=== PATIENT | female | born 1995 | race Caucasian/White ===

== ENCOUNTER 2022-08-04 12:20 | Outpatient (CLI) | payer OTHER, SELFPAY ==
[2022-08-04 12:43] LABS: Basophils Absolute Auto 0.05 K/mm3 (0.00-0.10); Basophils Percent Auto 0.4 % (0.0-1.0); Eosinophils Absolute Auto 0.12 K/mm3 (0.02-0.50); Hematocrit 37.1 % (35.0-49.0); Hemoglobin 12.1 g/dL (12.0-15.0); Immature Granulocyte Absolute 0.06 K/mm3 (0.00-0.00); Immature Granulocyte Percent A 0.5 % (0.0-0.0); Lymphocytes Absolute Auto 1.55 K/mm3 (1.10-4.50); Lymphocytes Percent Auto 13.5 % (18.0-42.0); Mean Corpuscular HGB Conc 32.6 g/dL (32.0-36.0); Mean Corpuscular Hemoglobin 27.2 pg (27.0-31.0); Mean Corpuscular Volume 83.4 fL (78.0-102.0); Mean Platelet Volume 10.6 fl (9.2-11.8); Monocytes Absolute Auto 0.39 K/mm3 (0.10-0.90); Monocytes Percent Auto 3.4 % (2.0-11.0); Neutrophils Absolute Auto 9.3 K/mm3 (1.7-7.2); Neutrophils Percent Auto 81.2 % (50.0-70.0); Platelet Count Result 209 K/mm3 (150-420); Red Blood Count 4.45 M/mm3 (4.20-5.40); Red Cell Distribution Width 14.5 % (11.6-14.4); White Blood Count 11.5 K/mm3 (4.8-10.8)
[2022-08-04 13:22] LABS: Alanine Aminotransferase 16 U/L (14-59); Albumin Level 3.7 g/dL (3.4-5.0); Alkaline Phosphatase 114 U/L (46-116); Anion Gap 10 mmol/L (8-16); Aspartate Amino Transferase < 10 U/L (15-37); Bilirubin,Total 0.4 mg/dL (0.00-1.00); Blood Urea Nitrogen 13 mg/dL (7-18); Calcium 9.1 mg/dL (8.5-10.1); Carbon Dioxide 25 mmol/L (21-32); Chloride 106 mmol/L (98-108); Estimated Glomerular Filt Rate > 60; Ferritin 75 ng/mL (8-252); Glucose 106 mg/dL (70-99); Iron 44 ug/dL (50-170); Osmolality Calculated 292 mOsm/kg (285-295); Percent Iron Saturation 17 % (12-57); Potassium 4.3 mmol/L (3.5-5.1); Sodium 141 mmol/L (136-145); Total Protein 7.5 g/dL (6.4-8.2)
[2022-08-07 11:49] LABS: Hepatitis A Antibody IgM Nonreactive; Hepatitis B Core Antibody Nonreactive (Nonreactive); Hepatitis B Surface Antigen Nonreactive (Nonreactive); Hepatitis C Virus Antibody Reactive (Nonreactive)
[2022-08-07 16:26] LABS: Hepatitis C RNA, Quant PCR <15 IU/mL
[2022-08-08 12:52] LABS: Hepatitis C Viral RNA PCR <15 IU/mL
== END 2022-08-04 12:21 | disposition home or self-care (01) ==
LOC: CHSLAB 12:22
PROVIDERS: PCP Family Medicine; Visit Provider Family Medicine
DX: B19.20 Unspecified viral hepatitis C without hepatic coma (principal); G25.81 Restless legs syndrome; I42.9 Cardiomyopathy, unspecified
CPT/HCPCS: 36415; 80053; 80074; 82728; 83540; 83550; 85025; 87522

== ENCOUNTER 2022-08-23 11:00 | Outpatient (RCR) | payer OTHER, SELFPAY ==
--- NOTE | 2022-07-25 15:13 | PTOPEVAL1 ---
Assessment and note entered by Jeannie Han DPT Evaluation Information Assessment Status Evaluation Diagnosis Unsteady gait Onset 06/27/2022 Subjective Information Subjective portion assisted by sister. Pt experienced a heart attack on 06/27/2022 due to an overdose. Pt has since been dealing with short term memory loss, balance issues, and some leg pain. Pt has increased difficulty with walking and with going up steps. Pt has constant burning pain in both of her legs which improves with movement. She reports some numbness and tingling in her legs as well. She has had multiple tripping incidents since her [place]. She is currently independent with dressing, bathing, cooking, and cleaning but she has had a family member present at all times to assist. Pt's sister reports she has a very hard time with her short term memory. Reported Pain Level Pain Score 0: Self Report Pain Score 5: Self Report Assessment PT Clinical Summary Pt presents to PT s/p [place] on 06/27/22 and demonstrates decreased strength, altered gait, and impaired dynamic balance. Her current deficits place her at an increased risk for falls and makes it more challenging for her to navigate steps and obstacles. She was provided with some interventions to improve balance with a NBOS or visual suppression. The pt and her sister were educated on her current status and POC going forward. She will benefit from skilled PT to decrease risk for falls, improve the aforementioned impairments, and improve efficiency and independence with recreational and functional activities. Plan of Care Interventions Gait Training,Neuro Re-education,Patient/Caregiver Educati,Therapeutic Activities,Therapeutic Exercise PT Services Indicated Yes Treatment Frequency and 1x week for 10 visits Duration These treatments will address the objective and functional deficits as defined above. The patient will be advanced safely and appropriately in order for the patient to progress towards his/her prior level of function. Additional exercises will be introduced and as well as a comprehensive home exercise program upon discharge, if needed, ?to ensure carryover of functional gains achieved in the clinic. This treatment plan has been reviewed and agreement upon by the patient.
--- NOTE | 2022-07-26 08:19 | OTOPEVAL1 ---
Assessment and note entered by Hanny Tony OT These treatments will address the objective and functional deficits as defined above. The patient will be advanced safely and appropriately in order for the patient to progress towards his/her prior level of function. Additional exercises will be introduced and as well as a comprehensive home exercise program upon discharge, if needed, ?to ensure carryover of functional gains achieved in the clinic. This treatment plan has been reviewed and agreement upon by the patient.
--- NOTE | 2022-07-26 09:19 | BUOTOPEVAL ---
Assessment and note entered by Hanny Tony OT Evaluation Information Assessment Status Evaluation Diagnosis Myocardial infarction Onset 06/27/2022 Subjective Information The patient reports she would like to go back to work and living independently. Reported Pain Level Pain Score 0: Self Report Assessment OT Clinical Summary The patient is a 27 year old female who was referred to outpatient OT due to decreased UE strength and fine motor coordination deficits from myocardial infarction and neurological event. The patient previously was living alone and working/ driving independently, demonstrated WNL UE strength and fine motor coordination needed to perform work tasks. The patient now lives with her sister, is independent with self care tasks but requires assistance for homemaking tasks, driving and community mobility due to safety/cognitive concerns and decreased UE strength and endurance. The patient requires skilled OT to address UE weakness, [employer]/pinch strength and fine motor coordination in order to return to prior level of function needed to live independently and contribute to society through work. Plan of Care Interventions Therapeutic Exercise,Manual Therapy,Neuro Re- education,Therapeutic Activities,Electrical Stimulation,Self-Care/Home Management,Ultrasound OT Services Indicated Yes Treatment Frequency and 1x/week for 10 visits. Duration These treatments will address the objective and functional deficits as defined above. The patient will be advanced safely and appropriately in order for the patient to progress towards his/her prior level of function. Additional exercises will be introduced and as well as a comprehensive home exercise program upon discharge, if needed, ?to ensure carryover of functional gains achieved in the clinic. This treatment plan has been reviewed and agreement upon by the patient.
--- NOTE | 2022-08-05 14:11 | BUPTOPEVAL1 ---
Assessment and note entered by Jeannie Han DPT Evaluation Information Assessment Status Evaluation Diagnosis Unsteady gait Onset 06/27/2022 Subjective Information Subjective portion assisted by sister. Pt experienced a heart attack on 06/27/2022 due to an overdose. Pt has since been dealing with short term memory loss, balance issues, and some leg pain. Pt has increased difficulty with walking and with going up steps. Pt has constant burning pain in both of her legs which improves with movement. She reports some numbness and tingling in her legs as well. She has had multiple tripping incidents since her [place]. She is currently independent with dressing, bathing, cooking, and cleaning but she has had a family member present at all times to assist. Pt's sister reports she has a very hard time with her short term memory. Reported Pain Level Pain Score 0: Self Report Assessment PT Clinical Summary Pt presents to PT s/p [place] on 06/27/22 and demonstrates decreased strength, altered gait, and impaired dynamic balance. Her current deficits place her at an increased risk for falls and makes it more challenging for her to navigate steps and obstacles. She was provided with some interventions to improve balance with a NBOS or visual suppression. The pt and her sister were educated on her current status and POC going forward. She will benefit from skilled PT to decrease risk for falls, improve the aforementioned impairments, and improve efficiency and independence with recreational and functional activities. Plan of Care Interventions Gait Training,Neuro Re-education,Patient/Caregiver Educati,Therapeutic Activities,Therapeutic Exercise PT Services Indicated Yes Treatment Frequency and 1x week for 10 visits Duration These treatments will address the objective and functional deficits as defined above. The patient will be advanced safely and appropriately in order for the patient to progress towards his/her prior level of function. Additional exercises will be introduced and as well as a comprehensive home exercise program upon discharge, if needed, ?to ensure carryover of functional gains achieved in the clinic. This treatment plan has been reviewed and agreement upon by the patient.
--- NOTE | 2022-08-23 12:57 | STOPEVAL1 ---
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 Patient gets very frustrated with inability to recall recent events. She reported that she has seen some improvements but continues to rely on her sister for medication management, cooking, management of appointments and daily activities. Reported Pain Level Pain Score 0: Self Report Pain Score 0: Self Report Pain Score 0: Self Report Assessment ST Clinical Summary Patient was referred by her primary physician for an ST evaluation due to ongoing concerns with short term memory post OD and [place]. The patient and her sister reported that the patient was independent prior to hospitalization and would like to get back to as independent as possible. The patient relies on her sister to complete ADL's including; medication management, cooking, cleaning, organizing appointments due to difficulties with cognitive skills. The patient was evaluated through patient/family questionnaire, clinical observation, RUST()cognitive testing and informal cognitive testing. The patient currently presents with difficulties in short term memory skills (recent, remote, temporal), visual/ perceptual skills, and executive functioning. The patient was tearful throughout the session due to difficulties in various areas of cognitive function. Recommendation for ST to target neurocognitive speech deficits [id number]/Aphasia R447 .01 to improve the patient's cognitive- communication skills to promote functional independence. Recommendation for ST 2x/week for 10 sessions. Plan of Care Interventions Treatment for Cognitive F ST Services Indicated Yes Treatment Frequency and 2x/week for 10 sessions Duration These treatments will address the objective and functional deficits as defined above. The patient will be advanced safely and appropriately in order for the patient to progress towards his/her prior level of function. Additional exercises will be introduced and as well as a comprehensive home exercise progra
--- NOTE | 2022-08-30 09:41 | PCSTNOTE ---
Patient called & cancelled scheduled appointment this date due to patient being arrested. Sister reported that all appointments will be cancelled.
== END 2022-08-23 19:00 | disposition home or self-care (01) ==
LOC: CHSST 11:00
PROVIDERS: Visit Provider Family Medicine
DX: G93.40 Encephalopathy, unspecified (principal); R41.841 Cognitive communication deficit; R47.01 Aphasia
CPT/HCPCS: 96125; 97110; 97161; 97165; 97530